=== PATIENT | female | born 1960 | race Caucasian/White ===

== ENCOUNTER 2021-03-25 03:33 | Emergency (ER) | payer OTHER, BC ==
[2021-03-25] MEDS ORDERED: Lidocaine 1% (PF) 30 ML VIAL ONE (05:13)
[2021-03-25] MEDS ORDERED: HYDROcodone/Acetaminophen 10/325 mg Tablet ONE (05:18)
[2021-03-25] MEDS ORDERED: Ketorolac Tromethamine 30 MG/ML VIAL ONE (06:37)
[2021-03-25] MEDS ORDERED: Ondansetron ODT 4 MG TAB ONE (06:37)
[2021-03-25] MEDS ORDERED: Morphine 4 MG/ML VIAL ONE (07:11)
== END 2021-03-25 07:49 | disposition home or self-care (01) ==
LOC: ERS 03:33
DX: S52.571A Other intraarticular fracture of lower end of right radius, initial encounter for closed fracture (principal); W01.10XA Fall on same level from slipping, tripping and stumbling with subsequent striking against unspecified object, initial encounter
CPT/HCPCS: 25605; 96372; J1885; J2001; J2270; Q0162; U0003; U0005

== ENCOUNTER 2021-03-30 06:10 | Day surgery (SDC) | payer BC ==
[2021-03-29 11:46] VITALS: BMI 23.1
[2021-03-30] MEDS ORDERED: Fentanyl 100 MCG/2 ML VIAL ONE (07:06)
[2021-03-30] MEDS ORDERED: Midazolam HCl 2 mg/2 ml Vial ONE (07:06)
[2021-03-30] MEDS ORDERED: ePHEDrine 50 MG/ML VIAL ONE (07:31)
[2021-03-30] MEDS ORDERED: PROPOFOL 200 MG/20 ML VIAL ONE (07:31)
[2021-03-30] MEDS ORDERED: Bupivacaine HCl 0.5%/Epinephrine 1:200,000/PF 30 ml Vial ONE (07:31)
[2021-03-30] MEDS ORDERED: Lidocaine 1% PF 5 ML VIAL ONE (07:31)
[2021-03-30] MEDS ORDERED: Ondansetron PF 4 MG/2 ML Vial ONE (07:31)
== END 2021-03-30 10:39 | disposition home or self-care (01) ==
LOC: SDC 06:10
PROVIDERS: ATTEND Orthopaedic Surgery
PROC: 0PSH04Z Reposition Right Radius with Internal Fixation Device, Open Approach (ICD-10-PCS; principal; 2021-03-30)
PROC: 3E0T3BZ Introduction of Anesthetic Agent into Peripheral Nerves and Plexi, Percutaneous Approach (ICD-10-PCS; principal; 2021-03-30)
DX: S59.291A Other physeal fracture of lower end of radius, right arm, initial encounter for closed fracture (principal); S52.614A Nondisplaced fracture of right ulna styloid process, initial encounter for closed fracture; Z79.899 Other long term (current) drug therapy; W19.XXXA Unspecified fall, initial encounter
CPT/HCPCS: 76000; C1713; J0690; J2250; J2405; J2704; J3010; J3490